=== PATIENT | female | born 1945 | race Caucasian/White ===

== ENCOUNTER 2016-07-13 13:36 | Emergency (ER) | payer MEDICARE, BC ==
[~2016-07-13] VITALS: Ht 162.6 cm; Wt 81.0 kg
[~2016-07-13 13:36] MED LIST: AMOXICILLIN875 MG OR; ARMOUR THYROID60 MG OR; AUGMENTIN875 MG OR; AUGMENTIN875TAB PO; BUMEX1 MG PO; BUMEX2 MG OR; CLARITIN10 M1 PO; COUMADIN2.5 MG OR; COUMADIN5 MG OR; DIPHENHYDRAM OR; ESTRACE2 MG OR; KEFLEX500 M1 PO; KLONOPIN WAF0.5 MG OR; LORTAB 7.5 OR; LORTAB5 PO; MEDDOSEPAK PO; MINOCYCLINE100 MG OR; MULTI VIT PO; NITROGLYCER0.4 MG SL; OXYCODONE30 MG PO; PERCOCET 5/325M1 TAB OR; PREDNISONE20 MG PO; PREMPRO 0.625/21 TA1 OR; SERTRALINE50 MG PO; SYNTHROID100 MCG PO; ULTRAM50 M1 PO; VALTREX1 GM OR; catapres OR
[2016-07-13 14:35] LABS: INFLUENZA A NONE DETECTED (NONE DETECT); INFLUENZA B NONE DETECTED (NONE DETECT)
[2016-07-13] MEDS ORDERED: PENICILLN VK500 MG PO (14:42)
[2016-07-13 14:45] VITALS: BP 139/74
== END 2016-07-13 14:45 | disposition home or self-care (01) ==
LOC: ED 13:36
PROVIDERS: Emergency Medicine
DX: J02.9 Acute pharyngitis, unspecified (principal); R52 Pain, unspecified

== ENCOUNTER 2017-05-21 12:37 | Emergency (ER) | payer MEDICARE, BC ==
[~2017-05-21] VITALS: Ht 162.6 cm; Wt 72.0 kg
[~2017-05-21 12:37] MED LIST changes: +CLONIDINE0.1 MG PO; +EC ASPIRIN325 MG PO; +IMODIUM A-1 MG/7.5 M PO; +KEFLEX500 MG PO; +LEVOTHYROXIN75 MC1 PO; +MULTIVITAMI1 PO; +PENICILLN VK500 MG PO
[2017-05-21 13:41] LABS: INFLUENZA A NONE DETECTED (NONE DETECT); INFLUENZA B NONE DETECTED (NONE DETECT)
[2017-05-21] MEDS ORDERED: PROVENTIL HFA IN (13:44)
[2017-05-21] MEDS ORDERED: ZITHROMAX250 MG PO (13:44)
[2017-05-21 13:50] VITALS: BP 128/89
== END 2017-05-21 13:50 | disposition home or self-care (01) ==
LOC: ED 12:37
PROVIDERS: Emergency Medicine
DX: J40 Bronchitis, not specified as acute or chronic (principal); J02.9 Acute pharyngitis, unspecified; E03.9 Hypothyroidism, unspecified; I34.1 Nonrheumatic mitral (valve) prolapse

== ENCOUNTER 2017-05-28 20:33 | Emergency (ER) | payer MEDICARE, BC ==
[~2017-05-28] VITALS: Ht 162.6 cm; Wt 79.4 kg
[~2017-05-28 20:33] MED LIST changes: +PROVENTIL HFA IN; +ZITHROMAX250 MG PO
[2017-05-28 21:38] LABS: INFLUENZA A NONE DETECTED (NONE DETECT); INFLUENZA B NONE DETECTED (NONE DETECT)
[2017-05-28] MEDS ORDERED: FLOXIN OTIC0.3 % AS (21:48)
[2017-05-28] MEDS ORDERED: AMOX/K CLAV875 M1 PO (21:48)
[2017-05-28] MEDS ORDERED: LORTAB 1010 MG PO (21:48)
[2017-05-28 23:10] VITALS: BP 156/75
== END 2017-05-28 23:11 | disposition home or self-care (01) ==
LOC: ED 20:33
PROVIDERS: Emergency Medicine
DX: H66.92 Otitis media, unspecified, left ear (principal); J02.9 Acute pharyngitis, unspecified; I10 Essential (primary) hypertension; R50.9 Fever, unspecified; H92.02 Otalgia, left ear; R09.81 Nasal congestion

== ENCOUNTER 2017-06-03 21:14 | Emergency (ER) | payer MEDICARE, BC ==
[~2017-06-03] VITALS: Ht 162.6 cm; Wt 87.4 kg
[~2017-06-03 21:14] MED LIST changes: +AMOX/K CLAV875 M1 PO; +FLOXIN OTIC0.3 % AS; +LORTAB 1010 MG PO
[2017-06-03 22:16] LABS: HEMATOCRIT 45.1 % (37.0-47.0); HEMOGLOBIN 14.7 g/dl (12.0-16.0); IMMATURE GRANULOCYTES 0.4 % (0.0-1.0); MEAN CELL VOLUME 84.6 fL CALC (80.0-100.0); MEAN CORPUSCULAR HGB 27.6 pG CALC (26.0-32.0); MEAN CORPUSCULAR HGB CONC 32.6 g/L CALC (32.0-36.0); NEUT# 7.15 thou/uL (2.00-7.15); RED BLOOD COUNT 5.33 mill/uL (4.20-5.60); RED CELL DISTRI WIDTH 13.2 % (11.5-15.5)
[2017-06-03 22:23] LABS: ALBUMIN 4.6 g/dL (3.2-5.0); ALKALINE PHOSPHATASE 119 u/l (38-126); ANION GAP 19 (6-22 (CALC)); BUN 16 mg/dL (8-23); BUN/CREATININE RATIO 21 (12-20 (CALC)); CARBON DIOXIDE 21 mmol/l (22-30); CHLORIDE 110 mmol/l (95-108); CREATININE 0.8 mg/dL (0.5-1.0); GFR > 60 ML/MIN (>=60 (CALC)); GFR FOR AFR.AMER. > 60 ML/MIN (>=60 (CALC)); LIPASE 301 u/l (23-300); POTASSIUM 4.5 mmol/l (3.5-5.1); SGOT/AST 25 u/l (9-36); SGPT/ALT 25 u/l (11-66); SODIUM 145 mmol/l (137-146); TOTAL PROTEIN 8.3 g/dL (6.3-8.2); URINE BILIRUBIN - DIPSTICK NEGATIVE (NEGATIVE); URINE BLOOD DIPSTICK NEGATIVE (NEGATIVE); URINE CLARITY CLEAR; URINE COLOR YELLOW; URINE GLUCOSE - DIPSTICK NEGATIVE (NEGATIVE); URINE KETONE NEGATIVE (NEGATIVE); URINE LEUK ESTERASE NEGATIVE (NEGATIVE); URINE NITRITE - DIPSTICK NEGATIVE (Negative); URINE PROTEIN - DIPSTICK NEGATIVE (NEG-TRACE); URINE SPECIFIC GRAVITY 1.015; URINE UROBILINOGEN - DIPSTICK 0.2 E.U./dL (0.2)
[2017-06-03] MEDS ORDERED: PERCOCET 5/325M1 TAB PO (23:10)
[2017-06-03 23:16] VITALS: BP 145/73
== END 2017-06-03 23:31 | disposition home or self-care (01) ==
LOC: ED 21:14
PROVIDERS: Emergency Medicine
DX: R19.7 Diarrhea, unspecified (principal); E03.9 Hypothyroidism, unspecified; I34.1 Nonrheumatic mitral (valve) prolapse

== ENCOUNTER 2017-08-29 01:39 | Emergency (ER) | payer MEDICARE, BC ==
[~2017-08-29] VITALS: Ht 162.6 cm; Wt 81.2 kg
[~2017-08-29 01:39] MED LIST changes: +PERCOCET 5/325M1 TAB PO
[2017-08-29 02:40] VITALS: BP 134/63
== END 2017-08-29 02:40 | disposition home or self-care (01) ==
LOC: ED 01:39
DX: I10 Essential (primary) hypertension (principal); G89.29 Other chronic pain; R52 Pain, unspecified; M19.042 Primary osteoarthritis, left hand; M19.041 Primary osteoarthritis, right hand; E03.9 Hypothyroidism, unspecified; I34.1 Nonrheumatic mitral (valve) prolapse; Z91.14 Patient's other noncompliance with medication regimen

== ENCOUNTER 2017-10-23 23:49 | Emergency (ER) | payer MEDICARE, BC ==
[~2017-10-23] VITALS: Ht 162.6 cm; Wt 80.4 kg
[2017-10-24] MEDS ORDERED: LEVOTHYROXIN100 MC1 PO (00:03)
[2017-10-24] MEDS ORDERED: TORADOL PO (00:28)
[2017-10-24 00:37] VITALS: BP 158/70
== END 2017-10-24 00:38 | disposition home or self-care (01) ==
LOC: ED 23:49
DX: M19.041 Primary osteoarthritis, right hand (principal); G90.519 Complex regional pain syndrome I of unspecified upper limb; I10 Essential (primary) hypertension; E03.9 Hypothyroidism, unspecified; I34.1 Nonrheumatic mitral (valve) prolapse

== ENCOUNTER 2018-02-22 01:16 | Emergency (ER) | payer MEDICARE, BC ==
[~2018-02-22] VITALS: Ht 162.6 cm; Wt 79.5 kg
[~2018-02-22 01:16] MED LIST changes: +LEVOTHYROXIN100 MC1 PO; +TORADOL PO
[2018-02-22 01:54] LABS: HEMATOCRIT 45.9 % (37.0-47.0); HEMOGLOBIN 15.1 g/dl (12.0-16.0); IMMATURE GRANULOCYTES 0.4 % (0.0-5.0); MEAN CELL VOLUME 84.1 fL CALC (80.0-100.0); MEAN CORPUSCULAR HGB 27.7 pG CALC (26.0-32.0); MEAN CORPUSCULAR HGB CONC 32.9 g/L CALC (32.0-36.0); NEUT# 10.59 thou/uL (2.00-7.15); RED BLOOD COUNT 5.46 mill/uL (4.20-5.60); RED CELL DISTRI WIDTH 13.2 % (11.5-15.5)
[2018-02-22 02:02] LABS: ALBUMIN 4.5 g/dL (3.2-5.0); ALKALINE PHOSPHATASE 115 u/l (38-126); AMYLASE 104 u/l (30-110); ANION GAP 15 (6-22 (CALC)); BUN 21 mg/dL (8-23); BUN/CREATININE RATIO 31 (12-20 (CALC)); CARBON DIOXIDE 18 mmol/l (22-30); CHLORIDE 114 mmol/l (95-108); CREATININE 0.7 mg/dL (0.5-1.0); GFR > 60 ML/MIN (>=60 (CALC)); GFR FOR AFR.AMER. > 60 ML/MIN (>=60 (CALC)); LIPASE 408 u/l (23-300); SGOT/AST 20 u/l (9-36); SODIUM 143 mmol/l (137-146)
[2018-02-22 02:52] LABS: URINE BILIRUBIN - DIPSTICK NEGATIVE (NEGATIVE); URINE BLOOD DIPSTICK NEGATIVE (NEGATIVE); URINE COLOR YELLOW; URINE GLUCOSE - DIPSTICK NEGATIVE (NEGATIVE); URINE KETONE TRACE mg/dL (NEGATIVE); URINE NITRITE - DIPSTICK NEGATIVE (Negative); URINE PROTEIN - DIPSTICK NEGATIVE (NEG-TRACE); URINE SPECIFIC GRAVITY 1.025; URINE UROBILINOGEN - DIPSTICK 0.2 E.U./dL (0.2)
[2018-02-22 02:53] LABS: URINE CLARITY SL CLOUDY; URINE LEUK ESTERASE SMALL (NEGATIVE)
[2018-02-22 02:58] LABS: URINE BACTERIA FEW hpf; URINE RBC 0-2 RBC/hpf (0-5); URINE SQUAMOUS EPITHELIAL CELL MODERATE EPI/hpf (0-FEW)
[2018-02-22] MEDS ORDERED: PHENERGAN25 MG/TAB PO (03:17)
[2018-02-22] MEDS ORDERED: METO50TA52 PO (03:17)
[2018-02-22] MEDS ORDERED: LOMOTIL2.5 MG PO (03:17)
[2018-02-22 04:00] VITALS: BP 220/97
== END 2018-02-22 04:00 | disposition home or self-care (01) ==
LOC: ED 01:16
PROVIDERS: Family Medicine
DX: K52.9 Noninfective gastroenteritis and colitis, unspecified (principal); I10 Essential (primary) hypertension; R10.13 Epigastric pain; R11.2 Nausea with vomiting, unspecified; R19.7 Diarrhea, unspecified; I34.1 Nonrheumatic mitral (valve) prolapse

== ENCOUNTER 2018-04-17 11:14 | Emergency (ER) | payer MEDICARE, BC ==
[~2018-04-17] VITALS: Ht 162.6 cm; Wt 78.6 kg
[~2018-04-17 11:14] MED LIST changes: +LOMOTIL2.5 MG PO; +METO50TA52 PO; +PHENERGAN25 MG/TAB PO
[2018-04-17 12:21] LABS: HEMATOCRIT 45.2 % (37.0-47.0); HEMOGLOBIN 14.8 g/dl (12.0-16.0); IMMATURE GRANULOCYTES 0.4 % (0.0-5.0); MEAN CELL VOLUME 83.4 fL CALC (80.0-100.0); MEAN CORPUSCULAR HGB 27.3 pG CALC (26.0-32.0); MEAN CORPUSCULAR HGB CONC 32.7 g/L CALC (32.0-36.0); NEUT# 8.93 thou/uL (2.00-7.15); RED BLOOD COUNT 5.42 mill/uL (4.20-5.60); RED CELL DISTRI WIDTH 13.2 % (11.5-15.5)
[2018-04-17 12:42] LABS: ALBUMIN 4.7 g/dL (3.2-5.0); ALKALINE PHOSPHATASE 103 u/l (38-126); AMYLASE 84 u/l (30-110); ANION GAP 18 (6-22 (CALC)); BUN 19 mg/dL (8-23); BUN/CREATININE RATIO 26 (12-20 (CALC)); CARBON DIOXIDE 20 mmol/l (22-30); CHLORIDE 107 mmol/l (95-108); CREATININE 0.7 mg/dL (0.5-1.0); GFR > 60 ML/MIN (>=60 (CALC)); GFR FOR AFR.AMER. > 60 ML/MIN (>=60 (CALC)); LIPASE 227 u/l (23-300); POTASSIUM 4.2 mmol/l (3.5-5.1); SGOT/AST 24 u/l (9-36); SODIUM 141 mmol/l (137-146)
[2018-04-17 12:52] LABS: MYOGLOBIN 70 ng/mL (0 - 62)
[2018-04-17 14:31] LABS: URINE BILIRUBIN - DIPSTICK NEGATIVE (NEGATIVE); URINE BLOOD DIPSTICK NEGATIVE (NEGATIVE); URINE COLOR YELLOW; URINE GLUCOSE - DIPSTICK NEGATIVE (NEGATIVE); URINE KETONE 40 mg/dL (NEGATIVE); URINE LEUK ESTERASE TRACE (NEGATIVE); URINE NITRITE - DIPSTICK NEGATIVE (Negative); URINE PH 5.5 (4.5-8.0); URINE PROTEIN - DIPSTICK TRACE mg/dL (NEG-TRACE); URINE SPECIFIC GRAVITY >=1.030; URINE UROBILINOGEN - DIPSTICK 0.2 E.U./dL (0.2)
[2018-04-17] MEDS ORDERED: CIPROFLOXACN500 MG PO (15:07)
[2018-04-17] MEDS ORDERED: ZOFRAN ODT4 MG PO (15:07)
[2018-04-17 16:02] LABS: C. DIFFICILE TOXIN A&B NEGATIVE (NEGATIVE)
[2018-04-17] MEDS ORDERED: ZITHROMAX250 MG PO (16:05)
[2018-04-17 17:06] VITALS: BP 193/65
== END 2018-04-17 17:20 | disposition home or self-care (01) ==
LOC: ED 11:14
PROVIDERS: Emergency Medicine
DX: A04.5 Campylobacter enteritis (principal); I10 Essential (primary) hypertension; E03.9 Hypothyroidism, unspecified; G90.50 Complex regional pain syndrome I, unspecified; I34.1 Nonrheumatic mitral (valve) prolapse

== ENCOUNTER 2018-07-06 07:02 | Emergency (ER) | payer MEDICARE, BC ==
[~2018-07-06] VITALS: Ht 162.6 cm; Wt 90.0 kg
[~2018-07-06 07:02] MED LIST changes: +CIPROFLOXACN500 MG PO; +ZOFRAN ODT4 MG PO
[2018-07-06] MEDS ORDERED: BENTYL10 MG PO (07:32)
[2018-07-06] MEDS ORDERED: ONDANSETRON4 MG PO ×2 (07:32)
[2018-07-06] MEDS ORDERED: LOMOTIL2.5 MG PO (07:32)
[2018-07-06 07:35] VITALS: BP 198/84
[2018-07-06] MEDS ORDERED: ZITHROMAX250 MG PO (07:35)
== END 2018-07-06 07:52 | disposition home or self-care (01) ==
LOC: ED 07:02
DX: R19.7 Diarrhea, unspecified (principal); R50.9 Fever, unspecified

== ENCOUNTER 2018-08-05 15:08 | Emergency (ER) | payer MEDICARE, BC ==
[~2018-08-05] VITALS: Ht 162.6 cm; Wt 78.0 kg
[~2018-08-05 15:08] MED LIST changes: +BENTYL10 MG PO; +ONDANSETRON4 MG PO
[2018-08-05 16:26] LABS: HEMATOCRIT 44.6 % (37.0-47.0); HEMOGLOBIN 14.8 g/dl (12.0-16.0); IMMATURE GRANULOCYTES 0.7 % (0.0-5.0); MEAN CELL VOLUME 80.8 fL CALC (80.0-100.0); MEAN CORPUSCULAR HGB 26.8 pG CALC (26.0-32.0); MEAN CORPUSCULAR HGB CONC 33.2 g/L CALC (32.0-36.0); NEUT# 8.67 thou/uL (2.00-7.15); RED BLOOD COUNT 5.52 mill/uL (4.20-5.60); RED CELL DISTRI WIDTH 13.7 % (11.5-15.5)
[2018-08-05 16:33] LABS: ALBUMIN 4.7 g/dL (3.2-5.0); ALKALINE PHOSPHATASE 122 u/l (38-126); ANION GAP 19 (6-22 (CALC)); BILIRUBIN, TOTAL 1.9 mg/dL (0.0-1.4); BUN 16 mg/dL (8-23); BUN/CREATININE RATIO 25 (12-20 (CALC)); CARBON DIOXIDE 18 mmol/l (22-30); CHLORIDE 105 mmol/l (95-108); CREATININE 0.6 mg/dL (0.5-1.0); GFR > 60 ML/MIN (>=60 (CALC)); GFR FOR AFR.AMER. > 60 ML/MIN (>=60 (CALC)); LIPASE 250 u/l (23-300); POTASSIUM 3.9 mmol/l (3.5-5.1); SGOT/AST 24 u/l (9-36); SODIUM 138 mmol/l (137-146)
[2018-08-05] MEDS ORDERED: ONDANSETRON4 MG PO (17:14)
[2018-08-05 17:19] VITALS: BP 175/71
== END 2018-08-05 17:35 | disposition home or self-care (01) ==
LOC: ED 15:08
PROVIDERS: Family Medicine
DX: K52.9 Noninfective gastroenteritis and colitis, unspecified (principal); I10 Essential (primary) hypertension; E03.9 Hypothyroidism, unspecified; I34.1 Nonrheumatic mitral (valve) prolapse

== ENCOUNTER 2018-08-12 21:47 | Emergency (ER) | payer MEDICARE, BC ==
[~2018-08-12] VITALS: Ht 162.6 cm; Wt 73.6 kg
[2018-08-12 22:28] LABS: HEMATOCRIT 39.9 % (37.0-47.0); IMMATURE GRANULOCYTES 0.6 % (0.0-5.0); MEAN CELL VOLUME 84.9 fL CALC (80.0-100.0); MEAN CORPUSCULAR HGB 26.6 pG CALC (26.0-32.0); MEAN CORPUSCULAR HGB CONC 31.3 g/L CALC (32.0-36.0); NEUT# 7.67 thou/uL (2.00-7.15); RED BLOOD COUNT 4.7 mill/uL (4.20-5.60)
[2018-08-12 22:33] LABS: HEMOGLOBIN 12.5 g/dl (12.0-16.0)
[2018-08-12 22:42] LABS: ALBUMIN 4.3 g/dL (3.2-5.0); ALKALINE PHOSPHATASE 109 u/l (38-126); ANION GAP 16 (6-22 (CALC)); BUN 33 mg/dL (8-23); BUN/CREATININE RATIO 35 (12-20 (CALC)); CARBON DIOXIDE 19 mmol/l (22-30); CHLORIDE 103 mmol/l (95-108); GFR 54 ML/MIN (>=60 (CALC)); GFR FOR AFR.AMER. > 60 ML/MIN (>=60 (CALC)); POTASSIUM 3.5 mmol/l (3.5-5.1); SGOT/AST 32 u/l (9-36); SODIUM 134 mmol/l (137-146); TOTAL PROTEIN 7.4 g/dL (6.3-8.2)
[2018-08-12 22:45] LABS: BILIRUBIN, TOTAL 0.9 mg/dL (0.0-1.4)
[2018-08-12 22:52] LABS: URINE BILIRUBIN - DIPSTICK NEGATIVE (NEGATIVE); URINE BLOOD DIPSTICK SMALL (NEGATIVE); URINE COLOR YELLOW; URINE GLUCOSE - DIPSTICK NEGATIVE (NEGATIVE); URINE KETONE NEGATIVE (NEGATIVE); URINE NITRITE - DIPSTICK NEGATIVE (Negative); URINE PH 5.5 (4.5-8.0); URINE PROTEIN - DIPSTICK TRACE mg/dL (NEG-TRACE); URINE SPECIFIC GRAVITY >=1.030; URINE UROBILINOGEN - DIPSTICK 0.2 E.U./dL (0.2)
[2018-08-12 22:53] LABS: URINE LEUK ESTERASE SMALL (NEGATIVE)
[2018-08-12 22:55] LABS: MYOGLOBIN 53 ng/mL (0 - 62)
[2018-08-12 23:18] LABS: URINE BACTERIA FEW hpf; URINE SQUAMOUS EPITHELIAL CELL FEW EPI/hpf (0-FEW)
[2018-08-12 23:31] LABS: TSH, 3RD GENERATION 4.41 uIU/mL (0.47 - 4.68)
[2018-08-12] MEDS ORDERED: CIPROFLOXACN500 MG PO (23:45)
[2018-08-13 00:55] VITALS: BP 156/89
== END 2018-08-13 00:55 | disposition home or self-care (01) ==
LOC: ED 21:47
PROVIDERS: Emergency Medicine
DX: R07.89 Other chest pain (principal); F41.9 Anxiety disorder, unspecified; N39.0 Urinary tract infection, site not specified; I10 Essential (primary) hypertension; I34.1 Nonrheumatic mitral (valve) prolapse; E03.9 Hypothyroidism, unspecified

== ENCOUNTER 2018-12-17 16:14 | Emergency (ER) | payer MEDICARE, BC ==
[~2018-12-17] VITALS: Ht 162.6 cm; Wt 70.0 kg
[2018-12-17 16:53] LABS: HEMATOCRIT 45.8 % (37.0-47.0); IMMATURE GRANULOCYTES 0.2 % (0.0-5.0); MEAN CELL VOLUME 81.2 fL CALC (80.0-100.0); MEAN CORPUSCULAR HGB 26.4 pG CALC (26.0-32.0); MEAN CORPUSCULAR HGB CONC 32.5 g/L CALC (32.0-36.0); NEUT# 9.47 thou/uL (2.00-7.15); RED BLOOD COUNT 5.64 mill/uL (4.20-5.60); RED CELL DISTRI WIDTH 14.4 % (11.5-15.5)
[2018-12-17 16:54] LABS: HEMOGLOBIN 14.9 g/dl (12.0-16.0)
[2018-12-17 17:11] LABS: ALBUMIN 4.8 g/dL (3.2-5.0); ALKALINE PHOSPHATASE 113 u/l (38-126); BUN 20 mg/dL (8-23); BUN/CREATININE RATIO 29 (12-20 (CALC)); CARBON DIOXIDE 19 mmol/l (22-30); CHLORIDE 105 mmol/l (95-108); CREATININE 0.7 mg/dL (0.5-1.0); GFR > 60 ML/MIN (>=60 (CALC)); GFR FOR AFR.AMER. > 60 ML/MIN (>=60 (CALC)); LIPASE 750 u/l (23-300); SGOT/AST 24 u/l (9-36); SODIUM 139 mmol/l (137-146); TOTAL PROTEIN 8.5 g/dL (6.3-8.2)
[2018-12-17 17:12] LABS: ANION GAP 19 (6-22 (CALC)); BILIRUBIN, TOTAL 2.9 mg/dL (0.0-1.4); POTASSIUM 4.4 mmol/l (3.5-5.1)
[2018-12-17 17:35] LABS: URINE BLOOD DIPSTICK SMALL (NEGATIVE); URINE COLOR YELLOW; URINE GLUCOSE - DIPSTICK NEGATIVE (NEGATIVE); URINE KETONE TRACE mg/dL (NEGATIVE); URINE NITRITE - DIPSTICK NEGATIVE (Negative); URINE PROTEIN - DIPSTICK 30 mg/dL (NEG-TRACE); URINE SPECIFIC GRAVITY >=1.030; URINE UROBILINOGEN - DIPSTICK 0.2 E.U./dL (0.2)
[2018-12-17 17:37] LABS: URINE BILIRUBIN - DIPSTICK NEGATIVE (NEGATIVE); URINE LEUK ESTERASE SMALL (NEGATIVE); URINE SQUAMOUS EPITHELIAL CELL MODERATE EPI/hpf (0-FEW)
[2018-12-17] MEDS ORDERED: TRAMADOL HYDROC50 MG PO (18:55)
[2018-12-17] MEDS ORDERED: ONDANSETRON4 MG PO (18:55)
[2018-12-17 19:12] VITALS: BP 181/97
== END 2018-12-17 19:26 | disposition home or self-care (01) ==
LOC: ED 16:14
PROVIDERS: Family Medicine
DX: K85.90 Acute pancreatitis without necrosis or infection, unspecified (principal); R82.71 Bacteriuria; I10 Essential (primary) hypertension; E03.9 Hypothyroidism, unspecified; G90.50 Complex regional pain syndrome I, unspecified
CPT/HCPCS: Q9967

== ENCOUNTER 2019-11-19 10:30 | Emergency (ER) | payer MEDICARE, BC ==
[~2019-11-19] VITALS: Ht 162.6 cm; Wt 81.8 kg
[~2019-11-19 10:30] MED LIST changes: +METRONIDAZOL500 MG PO; +PREVACID30 M3 PO; +TRAMADOL HYDROC50 MG PO
[2019-11-19] MEDS ORDERED: EPIPEN 2-P0.3 MG/0.3 IM (14:19)
[2019-11-19] MEDS ORDERED: PREDNISONE50 MG PO (14:19)
[2019-11-19] MEDS ORDERED: OFLOXACIN0.3 % OU (14:19)
[2019-11-19 14:50] VITALS: BP 108/43
== END 2019-11-19 15:10 | disposition home or self-care (01) ==
LOC: ED 10:30
DX: T78.40XA Allergy, unspecified, initial encounter (principal); I10 Essential (primary) hypertension; I34.1 Nonrheumatic mitral (valve) prolapse; X58.XXXA Exposure to other specified factors, initial encounter

== ENCOUNTER 2022-06-26 14:09 | Emergency (ER) | payer MEDICARE, BC ==
[~2022-06-26] VITALS: Ht 162.6 cm; Wt 85.0 kg
[~2022-06-26 14:09] MED LIST changes: +EPIPEN 2-P0.3 MG/0.3 IM; +OFLOXACIN0.3 % OU; +PREDNISONE50 MG PO
[2022-06-26 14:29] VITALS: BP 145/94
[2022-06-26 15:12] VITALS: BP 137/71
[2022-06-26] MEDS ORDERED: TRAMADOL HYDROC50 M1 PO (16:49)
[2022-06-26 17:06] VITALS: BP 115/72
== END 2022-06-26 17:24 | disposition home or self-care (01) ==
LOC: ED 14:09
DX: S93.401A Sprain of unspecified ligament of right ankle, initial encounter (principal); S83.92XA Sprain of unspecified site of left knee, initial encounter; S40.021A Contusion of right upper arm, initial encounter; I10 Essential (primary) hypertension; E03.9 Hypothyroidism, unspecified; I34.1 Nonrheumatic mitral (valve) prolapse; W17.89XA Other fall from one level to another, initial encounter; Y93.E9 Activity, other interior property and clothing maintenance; Y92.003 Bedroom of unspecified non-institutional (private) residence as the place of occurrence of the external cause

== ENCOUNTER 2023-10-18 19:17 | Emergency (ER) | payer MEDICARE, BC ==
[~2023-10-18] VITALS: Ht 162.6 cm; Wt 85.0 kg
[2023-10-18] VITALS (12 sets, daily range): BP systolic 128–200; BP diastolic 55–83
[~2023-10-18 19:17] MED LIST changes: +TRAMADOL HYDROC50 M1 PO
[2023-10-18] MEDS ORDERED: SODIUM CHLORIDE 0.9% 1,000 ML IV STA ×2 (19:30→22:16)
[2023-10-18] MEDS ORDERED: KETOROLAC TROMETHAMINE 30 MG/ML SDV IV ONE (19:35)
[2023-10-18] MEDS ORDERED: PROMETHAZINE HCL 25 MG/ML AMP IV ONE (19:35)
[2023-10-18 20:09] LABS: BASO% 0.3 % (0-3); EOS% 0.1 % (0-8); HEMATOCRIT 44.2 % (37.0-47.0); HEMOGLOBIN 14.5 g/dl (12.0-16.0); IMMATURE GRANULOCYTES 0.3 % (0.0-5.0); LYMPH% 6.4 % (15-41); MEAN CORPUSCULAR HGB 28.5 pG CALC (26.0-32.0); MEAN CORPUSCULAR HGB CONC 32.8 g/dL CAL (32.0-36.0); MONO% 3.8 % (2-13); NEUT# 12.61 thou/uL (2.00-7.15); NEUT% 89.1 % (42-76); RED BLOOD COUNT 5.08 mill/uL (4.20-5.60); RED CELL DISTRI WIDTH 12.8 % (11.5-15.5)
[2023-10-18 20:52] LABS: ALBUMIN 4.3 g/dL (3.2-5.0); POTASSIUM 4.3 mmol/l (3.5-5.1)
[2023-10-18 20:53] LABS: BILIRUBIN, TOTAL 1.6 mg/dL (0.02-1.3)
[2023-10-18] MEDS ORDERED: HYDROmorphone HCL 2 MG/AMP IV STA (22:09)
[2023-10-18] MEDS ORDERED: PROCHLORPERAZINE EDISYLATE 10 MG/2 ML SDV IV ONE (22:15)
[2023-10-19 00:01] VITALS: BP 120/69
[2023-10-19 00:17] VITALS: BP 147/69
[2023-10-19 00:59] LABS: URINE BILIRUBIN - DIPSTICK Negative (NEGATIVE); URINE BLOOD DIPSTICK Small (NEGATIVE); URINE GLUCOSE - DIPSTICK Negative (NEGATIVE); URINE KETONE Trace mg/dL (NEGATIVE); URINE NITRITE - DIPSTICK Negative (Negative); URINE PROTEIN - DIPSTICK Trace mg/dL (NEG-TRACE); URINE UROBILINOGEN - DIPSTICK 0.2 E.U./dL (0.2)
[2023-10-19 01:00] LABS: URINE COLOR Yellow; URINE LEUK ESTERASE Negative (NEGATIVE)
[2023-10-19 01:01] LABS: URINE WBC 0-2 WBC/hpf (0-5)
[2023-10-19 01:02] LABS: URINE BACTERIA FEW hpf; URINE EPITHELIAL CELLS FEW EPI/hpf (0-FEW)
[2023-10-19] MEDS ORDERED: KETOROLAC TROMETHAMINE 30 MG/ML SDV IV ONE (01:10)
[2023-10-19] MEDS ORDERED: PROMETHAZINE HCL 25 MG/ML AMP IV ONE (01:15)
[2023-10-19] MEDS ORDERED: TAMSULOSIN0.4 MG PO (01:18)
[2023-10-19] MEDS ORDERED: KEFLEX500 MG PO (01:18)
[2023-10-19] MEDS ORDERED: LORTAB 5/3255 MG PO (01:18)
[2023-10-19] MEDS ORDERED: cefTRIAXone SODIUM 2 GM in SODIUM CHLORIDE 0.9% 100 ML IV ONE (01:20)
[2023-10-19] MEDS ORDERED: HYDROcodone 5 MG/Acetaminophen 325 MG/COMBO PO ONE (01:20)
[2023-10-19] MEDS ORDERED: TAMSULOSIN HCL 0.4 MG CAP PO ONE (01:20)
[2023-10-19] MEDS ORDERED: LIDOcaine HCl 1% (Local Anesth.) 20 ML VIAL IM STA (02:08)
[2023-10-19] MEDS ORDERED: cefTRIAXone SODIUM 1 GM/VIAL SDV IM ONE (02:10)
== END 2023-10-19 02:30 | disposition home or self-care (01) ==
LOC: ED 19:17
PROVIDERS: Family Medicine
DX: N12 Tubulo-interstitial nephritis, not specified as acute or chronic (principal); I10 Essential (primary) hypertension; I34.1 Nonrheumatic mitral (valve) prolapse; E03.9 Hypothyroidism, unspecified; Z20.822 Contact with and (suspected) exposure to COVID-19
CPT/HCPCS: Q9967